=== PATIENT | male | born 1955 | race Caucasian/White ===

== ENCOUNTER 2018-09-08 10:06 | Emergency (ER) | payer OTHER ==
[~2018-09-08] VITALS: Ht 185.4 cm; Wt 120.4 kg
[2018-09-08] MEDS ORDERED: IV NORMAL SALINE 1,000ML 1,000 ML IV ONE (10:30)
--- NOTE | 2018-09-08 10:47 | PHYS DOC ---
Adult General Chief Complaint Chief Complaint: SKIN PROBLEM HPI HPI 63-year-old male presents with rash. The patient has had a spreading, erythematous, pruritic rash for the last 3 days. The patient started taking a new vitamin B-12 supplement on Monday. He developed the rash by Monday. He has not taken the medication since that time. The rash is continued to spread. It is now on his abdomen, chest, legs, buttocks, arms. He denies any other new exposures. He has not been doing any yard work working with plants. He has tried Benadryl at home which helps with the itching but has not improved the rash. He has had no difficulty breathing. He denies fever or chills. Review of Systems Review of Systems Constitutional: Denies fever or chills [] Eyes: Denies change in visual acuity, redness, or eye pain [] HENT: Denies nasal congestion or sore throat [] Respiratory: Denies cough or shortness of breath [] Cardiovascular: No additional information not addressed in HPI [] GI: Denies abdominal pain, nausea, vomiting, bloody stools or diarrhea [] : Denies dysuria or hematuria [] Musculoskeletal: Denies back pain or joint pain [] Integument: Rash[] Neurologic: Denies headache, focal weakness or sensory changes [] Endocrine: Denies polyuria or polydipsia [] All other systems were reviewed and found to be within normal limits, except as documented in this note. Current Medications Current Medications Current Medications Medications (Trade) Dose Ordered Sig/Dwight Start Time Stop Time Status Last Admin Dose Admin Diphenhydramine HCl (Benadryl) 25 mg 1X ONCE 09/08/18 11:00 09/08/18 11:01 Famotidine (Pepcid Vial) 20 mg 1X ONCE 09/08/18 11:00 09/08/18 11:01 Methylprednisolone Sodium Succinate (SOLU-Medrol 125MG VIAL) 125 mg 1X ONCE 09/08/18 11:00 09/08/18 11:01 Sodium Chloride 1,000 ml @ 1,000 mls/hr 1X ONCE 09/08/18 10:30 09/08/18 11:29 Allergies Allergies Allergies Uncoded Allergies Type Severity Reaction Last Updated Verified vitamin b12 Allergy Severe Hives, itching 09/08/18 Physical Exam Physical Exam Constitutional: Well developed, well nourished, no acute distress, non-toxic appearance. [] HENT: Normocephalic, atraumatic, bilateral external ears normal, oropharynx moist, no oral exudates, nose normal. [] Eyes: PERRLA, EOMI, conjunctiva normal, no discharge. [] Neck: Normal range of motion, no tenderness, supple, no stridor. [] Cardiovascular:Heart rate regular rhythm, no murmur [] Lungs & Thorax: Bilateral breath sounds clear to auscultation [] Abdomen: Bowel sounds normal, soft, no tenderness, no masses, no pulsatile masses. [] Skin: Erythematous patches on the patient's bilateral legs, bilateral arms, abdomen, chest, and buttocks. The rash looks consistent with allergic reaction.[ ] Back: No tenderness, no CVA tenderness. [] Extremities: No tenderness, no cyanosis, no clubbing, ROM intact, no edema. [] Neurologic: Alert and oriented X 3, normal motor function, normal sensory function, no focal deficits noted. [] Psychologic: Affect normal, judgement normal, mood normal. [] EKG EKG [] Radiology/Procedures Radiology/Procedures [] Course & Med Decision Making Course & Med Decision Making Pertinent Labs and Imaging studies reviewed. (See chart for details) We'll give the patient 1 L normal saline, 25 mg Benadryl IV, 20 mg of Pepcid IV , and 125 mg of Solu-Medrol IV. The itching is less intense at this time. The rash is also faded slightly, more on his legs and his abdomen. I will discharge the patient with a 12 day prednisone taper. If his condition worsens, he will return to the emergency room. He is stable for discharge at this time. [] Dragon Disclaimer Dragon Disclaimer This electronic medical record was generated, in whole or in part, using a voice recognition dictation system. Departure Departure: Impression: Primary Impression: Allergic reaction to chemical substance Disposition: 01 HOME, SELF-CARE Condition: STABLE Referrals: BROOKE ABDI MD (PCP) Patient Instructions: Drug Allergy, Qadu-yh-Wdix Scripts Prednisone (PREDNISONE) 10 Mg Tablet 10 MG PO UD for PREDNISONE TAPER, #36 TAB 0 Refills Take 5 tablets by mouth daily for 3 days, then take 4 tablets by mouth daily for 3 days, then take 2 tablet by mouth daily for 3 days, then take 1 tablet by mouth daily x 3 days, then stop. Prov: ESE JACOBSEN DO 09/08/18 Problem Qualifiers Primary Impression: Allergic reaction to chemical substance Encounter type: initial encounter Injury intent: accidental or unintentional Qualified Codes: T65.91XA - Toxic effect of unspecified substance, accidental (unintentional), initial encounter ESE JACOBSEN DO Sep 08, 2018 10:47
[2018-09-08 10:53] LABS: BASO # 0.1 x10^3/uL (0.0-0.2); BASO % 1 % (0-3); EOS # 1.1 x10^3/uL (0.0-0.7); EOS % 15 % (0-3); HEMATOCRIT 51.1 % (39.0-53.0); HEMOGLOBIN 17.6 g/dL (13.0-17.5); LYMPH # 1.7 x10^3/uL (1.0-4.8); LYMPH % 23 % (24-48); MEAN CORPUSCULAR HEMOGLOBIN 32 pg (25-35); MEAN CORPUSCULAR HGB CONC 35 g/dL (31-37); MEAN CORPUSCULAR VOLUME 92 fL (79-100); MONO # 0.9 x10^3/uL (0.0-1.1); MONO % 12 % (0-9); NEUT # 3.8 x10^3uL (1.8-7.7); NEUT % 50 % (31-73); PLATELET COUNT 232 x10^3/uL (140-400); RED BLOOD COUNT 5.56 x10^6/uL (4.30-5.70); WHITE BLOOD COUNT 7.7 x10^3/uL (4.0-11.0)
[2018-09-08] MEDS ORDERED: FAMOTIDINE 20 MG/2 ML VIAL IVP ONE (11:00)
[2018-09-08] MEDS ORDERED: methylPREDNISolone SOD SUCC PF 125 MG/2 ML VIAL. IV ONE (11:00)
[2018-09-08] MEDS ORDERED: diphenhydrAMINE 50 MG/ML VIAL IVP ONE (11:00)
[2018-09-08 11:07] LABS: ALBUMIN 4.5 g/dL (3.4-5.0); ALBUMIN/GLOBULIN RATIO 1.5 (1.0-1.7); CALCIUM 9.7 mg/dL (8.5-10.1); CREATININE 1.2 mg/dL (0.7-1.3); GFR 61.3; POTASSIUM 4.8 mmol/L (3.5-5.1); TOTAL BILIRUBIN 0.8 mg/dL (0.2-1.0); TOTAL PROTEIN 7.5 g/dL (6.4-8.2)
[2018-09-08] MEDS ORDERED: PRED-220 PO (11:21)
[2018-09-08 11:30] VITALS: BP 164/82
== END 2018-09-08 11:36 | disposition home or self-care (01) ==
LOC: ER 10:06
DX: T45.2X5A Adverse effect of vitamins, initial encounter (principal); Z88.8 Allergy status to other drugs, medicaments and biological substances; Y92.89 Other specified places as the place of occurrence of the external cause
CPT/HCPCS: 36415; 80053; 85025; 96374; 96375; 99283; J1200; J2930; J3490; J7030

== ENCOUNTER 2020-11-12 15:15 | Emergency (ER) | payer OTHER ==
[~2020-11-12] VITALS: Ht 185.4 cm; Wt 120.4 kg
[~2020-11-12 15:15] MED LIST: PRED-220 PO
[2020-11-12 15:47] VITALS: BP 170/66
--- NOTE | 2020-11-12 17:51 | RAD ---
EXAMINATION: US DPLX VENOUS EXTREMITY LOWER LT, 11/12/2020 5:10 PM CLINICAL INDICATION: Calf pain and swelling COMPARISON: None Available. PROCEDURE: Multiple grayscale, color Doppler and spectral Doppler sonographic images of the left lowe r extremity were obtained. FINDINGS: There is no evidence of deep venous thrombosis in the left lower extremity. The left common femoral, femoral and popliteal veins are echolucent with normal flow on color Doppler imaging. The v eins are fully compressible and show normal phasicity and reaction to augmentation. Visualized calf v eins are also normal in appearance. There is a heterogeneous hypoechoic collection in the subcutaneous soft tissue in the lateral calf me asuring 9 x 6.5 x 1.5 cm, likely a hematoma IMPRESSION: 1. No evidence of deep venous thrombosis in the left lower extremity. 2. Large complex subcutaneous fluid collection in the calf, likely a hematoma. Electronically signed by: Becky Payne MD (11/12/2020 5:49 PM) [id number]
--- NOTE | 2020-11-12 18:03 | PHYS DOC ---
Past History Past Medical History: No Pertinent History (GERRY DUNNE APRN) Past Surgical History: No Surgical History (GERRY DUNNE APRN) Alcohol Use: None Drug Use: None (GERRY DUNNE APRN) Adult General Chief Complaint Chief Complaint: LOWEREXTREMITY INJURY HPI HPI Patient is a 65-year-old male presents to the emergency department complaining of intermittent left calf pain and swelling that started 2 days ago. Patient states he originally injured his left calf when he was trying to move his boat and the tongue of the boat trailer fell down onto his calf. Patient states there was a large bruise and swelling that seemed to have gone down with ice p ack application over the first 2 days of the injury. Patient states since then he has not been placing ice packs or doing any therapies, patient states he has been walking his dog 2 hours a day each day and noticed that his calf started having shooting pains that would last only seconds however states the pain level is a 10 out of 10. Patient denies pain at this time. 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 Patient denies numbness or tingling to his lower extremity, denies swelling of his foot. Patient denies any other physical complaints or physical concerns. Patient denies chest pain, shortness of breath, chest congestion, nausea, vomiting, diarrhea or recent fever or chills. Patient states he takes Celexa, aspirin, hydrochlorothiazide, and a multivitamin. Patient denies allergies to medications, states he sees Dr. Abdi for primary care. (GERRY DUNNE APRN) Review of Systems Review of Systems 14 body systems of review of systems have been reviewed. See HPI for pertinent positives and negative responses, otherwise all other systems are negative, nonpertinent or noncontributory. (GERRY DUNNE APRN) Allergies Allergies Allergies Uncoded Allergies Type Severity Reaction Last Updated Verified vitamin b12 Allergy Severe Hives, itching 09/08/18 (GERRY DUNNE APRN) Physical Exam Physical Exam Constitutional: Well developed, well nourished, no acute distress, non-toxic appearance. 65-year-old male in no apparent distress, ambulates with steady gait. HENT: Normocephalic, atraumatic. Eyes: Conjunctiva normal, no discharge. Neck: Normal range of motion. Cardiovascular: No cyanosis appreciated, cap refill less than 2 seconds. Lungs & Thorax: Patient in no obvious respiratory distress, no audible adven titious lung sounds appreciated. Skin: Warm, dry, no erythema, no rash. Back: No tenderness. Extremities: No tenderness, no cyanosis, no clubbing, ROM intact, no edema. Except for left lower extremity, patient has swelling to calf, hematoma to lateral proximal aspect dark purple in color, no induration appreciated, bruising type skin discoloration noted distally towards ankle and top of foot near toes, there is no swelling of the foot or ankle appreciated, distal cap refill is less than 2 seconds, 2+ dorsalis pedis/posterior tibial pulse, the leg is not cold, normal temp in comparison to right lower extremity, the calf is visually larger on the left than on the right, there is no pitting edema, the soft tissues of the leg remained soft and consistent with the soft tissues of the right leg. There is no deformity appreciated, the skin is intact. No paresthesia complaint, no loss of sensation. The patient had no pain to palpation of the calf muscle. Neurologic: Alert and oriented X 3, normal motor function, normal sensory function, no focal deficits noted. Psychologic: Affect normal, judgement normal, mood normal. (GERRY DUNNE APRN) Current Patient Data Vital Signs Vital Signs Date Time Temp Pulse Resp B/P (MAP) Pulse Ox O2 Delivery O2 Flow Rate FiO2 11/12/20 15:47 83 18 170/66 (100) 100 (GERRY DUNNE APRN) EKG EKG [] (GERRY DUNNE APRN) Radiology/Procedures Radiology/Procedures []PATIENT: NABIL BAZZI JACCOUNT: [id number]#: [id number] : 1955 LOCATION: ER AGE: 65 SEX: M EXAM STATUS: REG ER ORD. PHYSICIAN: GERRY DUNNE APRN REASON: CALF PAIN AND SWELLING LEFT SIDE PROCEDURE: VENOUS LOWER EXTREMITY LEFT EXAMINATION: US DPLX VENOUS EXTREMITY LOWER LT, 11/12/2020 5:10 PM CLINICAL INDICATION: Calf pain and swelling COMPARISON: None Available. PROCEDURE: Multiple grayscale, color Doppler and spectral Doppler sonographic images of the left lower extremity were obtained. FINDINGS: There is no evidence of deep venous thrombosis in the left lower extremity. The left common femoral, femoral and popliteal veins are echolucent with normal flow on color Doppler imaging. The veins are fully compressible and show normal phasicity and reaction to augmentation. Visualized calf veins are also normal in appearance. There is a heterogeneous hypoechoic collection in the subcutaneous soft tissue in the lateral calf measuring 9 x 6.5 x 1.5 cm, likely a hematoma IMPRESSION: 1. No evidence of deep venous thrombosis in the left lower extremity. 2. Large complex subcutaneous fluid collection in the calf, likely a hematoma. Electronically signed by: Becky Payne MD (11/12/2020 5:49 PM) [id number] DICTATED AND SIGNED BY: BECKY PAYNE MD DATE: 11/12/20 174 CC: GERRY DUNNE APRN; MARINA ARANDA DO; BROOKE ABDI MD ~MTH0 0 (GERRY DUNNE APRN) Heart Score C/O Chest Pain: No Risk Factors: Risk Factors: DM, Current or recent (<one month) smoker, HTN, HLP, family history of CAD, obesity. Risk Scores: Risk Factors: DM, Current or recent (<one month) smoker, HTN, HLP, family history of CAD, obesity. (GERRY DUNNE APRN) Course & Med Decision Making Course & Med Decision Making Pertinent Labs and Imaging studies reviewed. (See chart for details) 65-year-old male, vital signs reviewed, presents emergency department concerning left swollen calf after initial injury of a week ago, noting increased swelling with shooting intermittent pains over the past 2 days. Physical presentation consistent with hematoma with bruising extending distally, the leg was not cold, the soft tissues remain soft, compartment syndrome symptoms not appreciated, the patient does not have constant pain, the pain is intermittent per his chief complaint, cap refill distal to initial injury less than 2 seconds, 2+ dorsalis pedis/posterior tibial pulses, no loss of movement, there was no paresthesia or loss of sensation. The patient did not rest and elevate his leg after injury, related to patient's swollen leg and concerns for DVT however patient did not have a history of DVT, will order sonogram to rule out DVT of left lower extremity. Patient was amenable to this plan. Sonogram of left leg DVT study imaging interpreted by house radiologist nonconcerning for DVT, noted soft tissue swelling consistent with hematoma which is consistent with physical examination and appearance. Discussed findings with patient, discussed using Gregg wrap, RICE therapy, and compression garment when ambulating, patient gave verbal understanding of this. Patient gave verbal understanding of discharge home instructions, follow-up with primary care for reevaluation of leg swelling and pain, may use [id number] Tylenol or Motrin for pain, return to ER precautions or concerns, patient states he is ready to go home and feels better knowing he does not have a blood clot in his leg, patient was discharged home without incident. (GERRY DUNNE APRN) Course & Med Decision Making I oversaw on the above date of service of this patient and discussed the care with the VOTATOR MACHINE OPERATOR. I agree with the findings, plan of care, and disposition as documented. Electronically signed, Marina Aranda DO (MARINA ARANDA DO) Baltazar Disclaimer Dragon Disclaimer This electronic medical record was generated, in whole or in part, using a voice recognition dictation system. (GERRY DUNNE APRN) Departure Departure: Impression: Primary Impression: Hematoma of left lower leg Disposition: 01 HOME / SELF CARE / HOMELESS Condition: GOOD Referrals: BROOKE ABDI MD (PCP) Additional Instructions: You were seen today in the emergency department for swelling of your left lower leg and calf after an initial blunt traumatic injury a week ago. Your calf was swollen and you had pain which are concerning signs for possible DVT and/or compartment syndrome. A sonogram focusing on the vessels of your leg did not show any concerning findings for a DVT, your leg was not cold, you had good pulses and good cap refill, soft tissues remained soft, you do not have a compartment syndrome. The radiologist that reviewed your imaging scans did note that you had a hematoma of the surrounding tissues of your calf muscles, we discussed elevation, and compression. A Gregg wrap was applied to your left calf in the emergency department, I recommend you purchase a compression garment to wear to help assist with your symptoms. Please follow-up with Dr. Abdi this week for reexamination of your left lower leg hematoma, continue to take your prescribed home medicines as directed by your health care physicians. Please return to the emergency department for worsening symptoms or other concerns. You may take [id number] Tylenol and or Motrin for ongoing calf discomfort. EMERGENCY DEPARTMENT GENERAL DISCHARGE INSTRUCTIONS Thank you for coming to [facility] (ED) today and trusting us with you care. We trust that you had a positivie experience in our Emergency Department. If you wish to speak to the department management, you may call the director at [phone]. YOUR FOLLOW UP INSTRUCTIONS ARE FOLLOWS: 1. Do you have a private Doctor? If you do not have a private doctor, please ask for a resource list of physicians or clinics that may be able to assist you with follow up care. 2. The Emergency Physician has interpreted your x-rays. The X-Ray specialist will also review them. If there is a change in the findings, you will be notified in 48 hours when at all possible. 3. A lab test or culture has been done, your results will be reviewed and you will be notified if you need a change in treatment. ADDITIONAL INSTRUCTIONS AND INFORMATION: 1. Your care today has been supervised by a physician who is specially trained in emergency care. Many problems require more than one evaluation for a complete diagnosis and treatment. We recommend that you schedule your follow up appointment as recommended to ensure complete treatment of you illness or injury. If you are unable to obtain follow up care and continue to have a problem, or if your condition worsens, we recommend that you return to the ED. 2. We are not able to safely determine your condition over the phone nor are we able to give sound medical advice over the phone. For these safety reasons, if you call for medical advice we will ask you to come to the ED for further evaluation. 3. If you have any questions regarding these discharge instructions please call the ED at [phone]. SAFETY INFORMATION: In the interest of safety, wellness, and injury prevention; we encourage you to wear your sealbelt, if you smoke; quite smoking, and we encourage family to use a protective helmet for bicycling and other sporting events that present an increased risk for head injury. IF YOUR SYMPTOMS WORSEN OR NEW SYMPTOMS DEVELOP, OR YOU HAVE CONCERNS ABOUT YOUR CONDITION; OR IF YOUR CONDITION WORSENS WHILE YOU ARE WAITING FOR YOUR FOLLOW UP APPOINTMENT; EITHER CONTACT YOUR PRIMARY CARE DOCTOR, THE PHYSICIAN WHOSE NAME AND NUMBER YOU WERE GIVEN, OR RETURN TO THE ED IMMEDIATELY. GERRY DUNNE APRN Nov 12, 2020 18:03 MARINA ARANDA DO Nov 14, 2020 06:45
== END 2020-11-12 18:10 | disposition home or self-care (01) ==
LOC: ER 15:15
DX: S80.12XA Contusion of left lower leg, initial encounter (principal); W10.8XXA Fall (on) (from) other stairs and steps, initial encounter; Y93.89 Activity, other specified; Y92.89 Other specified places as the place of occurrence of the external cause; Y99.8 Other external cause status
CPT/HCPCS: 93971; 99284-25